=== PATIENT | female | born 1950 | race Caucasian/White ===

== ENCOUNTER 2020-02-24 10:32 | Emergency (ER) | payer OTHER, BC ==
[~2020-02-24] VITALS: Ht 162.6 cm; Wt 63.5 kg
[2020-02-24] MEDS ORDERED: LIPITOR40 M1 (10:38)
[2020-02-24] MEDS ORDERED: FLONASE16 GM (10:39)
[2020-02-24] MEDS ORDERED: URIN D.S. TABL1 EACH PO (16:24)
[2020-02-24] MEDS ORDERED: TAMS0.4C PO (16:24)
== END 2020-02-24 17:12 | disposition home or self-care (01) ==
LOC: ER 10:32 → EDBD 10:55 → ER 10:55
DX: R33.8 Other retention of urine (principal)

== ENCOUNTER 2021-06-11 20:58 | Inpatient (IN) | payer OTHER, BC ==
[~2021-06-11] VITALS: Ht 162.6 cm; Wt 77.1 kg
[~2021-06-11 20:58] MED LIST: FLONASE16 GM; LIPITOR40 M1; TAMS0.4C PO; URIN D.S. TABL1 EACH PO
[2021-06-11] MEDS ORDERED: LISINOPRIL-HCT1 EAC2 (21:09)
[2021-06-11] MEDS ORDERED: EPINEPHRIN0.3 MG/0.3 (21:10)
[2021-06-11] MEDS ORDERED: URIBEL CAPSULE1 EACH (21:10)
[2021-06-11] MEDS ORDERED: COMBIVENT RESPIM4 GM (21:11)
[2021-06-15] MEDS ORDERED: LISINOPRIL5 MG PO (16:40)
[2021-06-15] MEDS ORDERED: CIPRO500 MG PO (16:40)
[2021-06-15] MEDS ORDERED: FLAGYL500MG PO (16:40)
[2021-06-15] MEDS ORDERED: KAOPECTATE240 MG PO (16:40)
[2021-06-15] MEDS ORDERED: INTESTINEX680 M1 PO (16:40)
[2021-06-15] MEDS ORDERED: PEPCID AC20 MG PO (16:40)
[2021-06-15] MEDS ORDERED: LIPITOR20 MG PO (16:40)
== END 2021-06-15 17:06 | disposition home or self-care (01) | DRG 392 ==
LOC: ER 20:58 → MEDJ 06-12 12:49
PROVIDERS: ADMIT Internal Medicine; ATTEND Internal Medicine
DX: K57.92 Diverticulitis of intestine, part unspecified, without perforation or abscess without bleeding (principal); E86.0 Dehydration; I10 Essential (primary) hypertension; K76.89 Other specified diseases of liver

== ENCOUNTER 2021-10-10 10:56 | Outpatient (CLI) | payer OTHER, BC ==
[~2021-10-10 10:56] MED LIST changes: +CIPRO500 MG PO; +COMBIVENT RESPIM4 GM; +EPINEPHRIN0.3 MG/0.3; +FLAGYL500MG PO; +INTESTINEX680 M1 PO; +KAOPECTATE240 MG PO; +LIPITOR20 MG PO; +LISINOPRIL-HCT1 EAC2; +LISINOPRIL5 MG PO; +PEPCID AC20 MG PO; +URIBEL CAPSULE1 EACH
== END 2021-10-10 10:57 | disposition home or self-care (01) ==
LOC: LAB 10:56
PROVIDERS: ATTEND Specialist
DX: N39.0 Urinary tract infection, site not specified (principal); J45.998 Other asthma

== ENCOUNTER 2025-02-22 12:28 | Outpatient (CLI) | payer OTHER, BC | END 2025-02-22 12:37 | disposition home or self-care (01) | LOC: SONOGRAMA 12:28 | PROVIDERS: ATTEND Obstetrics & Gynecology | DX: R10.2 Pelvic and perineal pain (principal) ==